=== PATIENT | male | born 1980 | race Caucasian/White ===

== ENCOUNTER 2021-07-09 17:48 | Emergency (ER) | payer MEDICAID ==
[~2021-07-09] VITALS: Ht 182.9 cm; Wt 90.7 kg
[2021-07-09 18:13] VITALS: BP 142/79
== END 2021-07-09 22:09 | disposition left against medical advice (07) ==
LOC: ER 17:48
DX: R21 Rash and other nonspecific skin eruption (principal); Z53.21 Procedure and treatment not carried out due to patient leaving prior to being seen by health care provider

== ENCOUNTER 2021-07-11 07:32 | Emergency (ER) | payer MEDICAID ==
[~2021-07-11] VITALS: Ht 182.9 cm; Wt 90.7 kg
[2021-07-11] MEDS ORDERED: AMOX500T3 PO (07:57)
[2021-07-11] MEDS ORDERED: LISI-275 PO (07:57)
[2021-07-11] MEDS ORDERED: CLIN300C8 PO (07:57)
[2021-07-11] MEDS ORDERED: cefTRIAXone W LIDOCAINE 1 GM IM IM ONE (08:00)
[2021-07-11] MEDS ORDERED: CLINDAMYCIN 600 MG/4 ML VL IM ONE (08:00)
[2021-07-11] MEDS ORDERED: cefTRIAXone SOD 1,000 MG VL IM ONE (08:15)
[2021-07-11 08:33] VITALS: BP 146/90
== END 2021-07-11 08:51 | disposition home or self-care (01) ==
LOC: ER 07:32
DX: I10 Essential (primary) hypertension (principal); L25.9 Unspecified contact dermatitis, unspecified cause; F17.210 Nicotine dependence, cigarettes, uncomplicated; Z88.0 Allergy status to penicillin
CPT/HCPCS: 96372; 99284; J0696